=== PATIENT | male | born 1990 | race Hispanic/Latino ===

== ENCOUNTER 2018-11-19 08:34 | Emergency (ER) | payer SELFPAY ==
[2018-11-19 09:26] LABS: Absolute Lymphocytes (CBC) 1.9 K/uL (0.7-4.9); Absolute Monocytes 0.6 K/uL (0.1-1.3); Absolute Neutrophil 6.1 K/uL (1.8-8.0); Basophils % 0.4 % (0-1.3); Eosinophils % 1.1 % (0-4.4); Hematocrit 43.5 % (39.6-49.0); Lymphocytes % 21.3 % (15.3-44.8); MPV 10.2 fL (7.6-11.3); Monocytes % 7.3 % (3.3-12.3); RBC Red Blood Cell Count 4.41 M/uL (4.33-5.43)
[2018-11-19 09:37] LABS: ALT/SGPT 41 U/L (12-78); AST/SGOT 27 U/L (15-37); Albumin 3.5 g/dL (3.4-5.0); Alkaline Phosphatase 94 U/L (45-117); BUN Blood Urea Nitrogen 16 mg/dL (7-18); Bicarbonate 29 mmol/L (21-32); Bilirubin Direct 0.2 mg/dL (0-0.2); Bilirubin Total 0.7 mg/dL (0.2-1.0); Glucose Level 89 mg/dL (74-106); Lipase 118 U/L (73-393); Potassium 4.1 mmol/L (3.5-5.1); Protein, Total 7.6 g/dL (6.4-8.2); Sodium Level 141 mmol/L (136-145)
--- NOTE | 2018-11-19 10:13 | RAD REPORT ---
EXAM DESCRIPTION: US - Scrotum Testicles - 11/19/2018 9:53 am CLINICAL HISTORY: Left scrotal pain and swelling COMPARISON: None FINDINGS: Right testicle measures 2.8 x 2.1 x 2.5 centimeters. Echotexture is homogeneous. Normal bl ood flow. Right epididymis normal size and echotexture with normal blood flow Left testicle measures 3 x 2.1 x 3 centimeters. Echotexture is homogeneous. Increased blood flow is p resent to the left testicle and left epididymis. Left epididymis is enlarged. 1 centimeter hypoechoic area is present the left epididymis Small left hydrocele IMPRESSION: Left orchitis/left epididymitis. 1 centimeter hypoechoic area within the left epididymis probably representing a small abscess
--- NOTE | 2018-11-19 11:07 | EDPHYS ---
Physician Documentation [facility] Name: Jorge Luis Leyva Age: 28 yrs Sex: Male : 1990 Arrival Date: 11/19/2018 Time: 08:37 Bed 8 Private MD: None, None ED Physician Marcelino Oneill HPI: 11/19 09:31 This 28 yrs old Male presents to ER via Ambulatory with complaints of ma2 Testicular Problem. 09:31 Onset: The symptoms/episode began/occurred gradually, 2 day(s) ago. Associated signs ma2 and symptoms: Pertinent positives: dysuria and discharge sexually acitve, Pertinent negatives: diarrhea, fever, nausea, vomiting. Severity of symptoms: At their worst the symptoms were moderate, declined pain medicine , in the emergency department the symptoms are unchanged. The patient has not experienced similar symptoms in the past. Historical: - Allergies: 08:47 tomato juice; aa5 - PMHx: 08:47 None; aa5 - PSHx: 08:47 None; aa5 - Immunization history:: Flu vaccine is not up to date. - Social history:: Smoking status: Patient/guardian denies using tobacco, Patient uses street drugs, marijuana, Patient/guardian denies using alcohol, street drugs, The patient lives with family. - Ebola Screening: : No symptoms or risks identified at this time. - Family history:: not pertinent. ROS: 09:31 Constitutional: Negative for fever, chills, and weight loss, Cardiovascular: Negative ma2 for chest pain, palpitations, and edema, Respiratory: Negative for shortness of breath, cough, wheezing, and pleuritic chest pain, Abdomen/GI: Negative for abdominal pain, nausea, diarrhea, and constipation, MS/Extremity: Negative for injury and deformity, Psych: Negative for depression, anxiety, suicide ideation, homicidal ideation, and hallucinations. 09:31 : Positive for urinary symptoms, testicular pain Negative for injury or acute deformity, pelvic pain, penile pain. 09:31 All other systems are negative. ma2 Exam: 09:31 Constitutional: This is a well developed, well nourished patient who is awake, alert, ma2 and in no acute distress. Chest/axilla: Normal chest wall appearance and motion. Nontender with no deformity. No lesions are appreciated. Cardiovascular: Regular rate and rhythm with a normal S1 and S2. No gallops, murmurs, or rubs. Normal PMI, no JVD. No pulse deficits. Respiratory: Lungs have equal breath sounds bilaterally, clear to auscultation and percussion. No rales, rhonchi or wheezes noted. No increased work of breathing, no retractions or nasal flaring. Abdomen/GI: Soft, non-tender, with normal bowel sounds. No distension or tympany. No guarding or rebound. No evidence of tenderness throughout. Back: No spinal tenderness. No costovertebral tenderness. Full range of motion. MS/ Extremity: Pulses equal, no cyanosis. Neurovascular intact. Full, normal range of motion. Neuro: Awake and alert, GCS 15, oriented to person, place, time, and situation. Cranial nerves II-XII grossly intact. Motor strength 5/5 in all extremities. Sensory grossly intact. Cerebellar exam normal. Normal gait. 09:31 : CVA tenderness, is absent, Male external genitalia: Patient is not circumisioned. erythema, is absent, laceration, swelling: scrotal, testicle, that is moderate, tenderness, is palpated in the right inguinal area, that is mild, ulceration, is not present. Vital Signs: 08:47 Weight 102.06 kg (R); Height 5 ft. 3 in. (160.02 cm) (R); Pain 8/10; aa5 08:49 BP 133 / 81; Pulse 87; Resp 18; Pulse Ox 98% on R/A; hj 08:52 Temp 98.4(O); pc1 09:52 BP 114 / 83; Pulse 60; Resp 18; Pulse Ox 100% on R/A; hj 08:47 Body Mass Index 39.86 (102.06 kg, 160.02 cm) aa5 MDM: 08:41 Patient medically screened. [facility] 09:31 Differential diagnosis: UTI, prostatitis, urethritis, orchitis vs torsion. [facility] 11:05 Data reviewed: vital signs, nurses notes. Counseling: I had a detailed discussion with ma2 the patient and/or guardian regarding: the historical points, exam findings, and any diagnostic results supporting the discharge/admit diagnosis, the presence of at least one elevated blood pressure reading (>120/80) during this emergency department visit, the need for outpatient follow up. Response to treatment: the patient's symptoms have markedly improved after treatment. ED course: orchitis on u/s ? small abscess no SIRS will send to urologist in 2 days, treated w abx . 11/19 09:03 Order name: Basic Metabolic Panel; Complete Time: 11: nm2 11/19 09:03 Order name: CBC with Diff; Complete Time: 11: nm2 11/19 09:03 Order name: Creatinine for Radiology; Complete Time: : nm2 11/19 09:03 Order name: Hepatic Function; Complete Time: 11: nm2 11/19 09:03 Order name: Lipase; Complete Time: 11: nm2 11/19 11:17 Order name: Urine Dipstick--Ancillary (enter results) bd 11/19 09:03 Order name: IV Saline Lock; Complete Time: 09:13 nm2 11/19 09:03 Order name: Labs collected and sent; Complete Time: 09:13 nm2 11/19 09:03 Order name: Scrotum Testicles US; Complete Time: : nm2 11/19 11:17 Order name: Urine Dipstick-Ancillary EDMS Administered Medications: 11:05 Drug: AZITHromycin 1 grams Route: PO; 11:31 Follow up: Response: No adverse reaction 11:09 Not Given (MD change order): Rocephin (cefTRIAXone) 125 mg IM once hj 11:10 Drug: Rocephin (cefTRIAXone) 250 mg Route: IM; Site: right deltoid; 11:31 Follow up: Response: No adverse reaction Disposition: 11/19/18 11:06 Discharged to Home. Impression: Orchitis and epididymitis. - Condition is Stable. - Discharge Instructions: Orchitis. - Prescriptions for Cipro 500 mg Oral Tablet - take 1 tablet by ORAL route every 12 hours for 14 days; 28 tablet. - Medication Reconciliation Form, Thank You Letter, Antibiotic Education, Prescription Opioid Use form. - Follow up: Ismael Castro MD; When: Tomorrow; Reason: Continuance of care. Signatures: Dispatcher [employer] EDMS Mary Basilio RN RN aa5 Tucker Gurrola RN RN hj Marcelino Oneill MD MD ma2 Corrections: (The following items were deleted from the chart) 11:43 11:06 11/19/2018 11:06 Discharged to Home. Impression: Orchitis and epididymitis. hj Condition is Stable. Forms are Medication Reconciliation Form, Thank You Letter, Antibiotic Education, Prescription Opioid Use. Follow up: Ismael Castro; When: Tomorrow; Reason: Continuance of care. ma2
--- NOTE | 2018-11-19 11:07 | ER ---
Nurse's Notes [facility] Name: Jorge Luis Leyva Age: 28 yrs Sex: Male : 1990 Arrival Date: 11/19/2018 Time: 08:37 Bed 8 Private MD: None, None Diagnosis: Orchitis and epididymitis Presentation: 11/19 08:43 Presenting complaint: Patient states: left testicular pain that began on Monday. Pt aa5 also reports swelling to left testicle that began last night. 08:43 Transition of care: patient was not received from another setting of care. Onset of aa5 symptoms was November 2018. Risk Assessment: Do you want to hurt yourself or someone else? Patient reports no desire to harm self or others. Initial Sepsis Screen: Does the patient meet any 2 criteria? No. Patient's initial sepsis screen is negative. Does the patient have a suspected source of infection? No. Patient's initial sepsis screen is negative. Care prior to arrival: None. 08:43 Method Of Arrival: Ambulatory aa5 08:43 Acuity: RYLAND 2 aa5 Triage Assessment: 08:48 General: Appears in no apparent distress. uncomfortable, Behavior is calm, cooperative, hj appropriate for age. Pain: Complains of pain in left testicle and right testicle. Historical: - Allergies: 08:47 tomato juice; aa5 - PMHx: 08:47 None; aa5 - PSHx: 08:47 None; aa5 - Immunization history:: Flu vaccine is not up to date. - Social history:: Smoking status: Patient/guardian denies using tobacco, Patient uses street drugs, marijuana, Patient/guardian denies using alcohol, street drugs, The patient lives with family. - Ebola Screening: : No symptoms or risks identified at this time. - Family history:: not pertinent. Screenin:48 Abuse screen: Denies threats or abuse. Denies injuries from another. Nutritional hj screening: No deficits noted. Tuberculosis screening: No symptoms or risk factors identified. Fall Risk None identified. Assessment: 08:51 General: Appears in no apparent distress. uncomfortable, Behavior is calm, cooperative, hj appropriate for age. Pain: Complains of pain in right testicle and left testicle and groin. Neuro: Level of Consciousness is awake, alert, obeys commands, Oriented to person, place, time, situation, Appropriate for age. Cardiovascular: Capillary refill < 3 seconds Patient's skin is warm and dry. Respiratory: Airway is patent Respiratory effort is even, unlabored, Respiratory pattern is regular, symmetrical. GI: No signs and/or symptoms were reported involving the gastrointestinal system. : Reports discharge, from penis that is. EENT: No signs and/or symptoms were reported regarding the EENT system. Derm: No signs and/or symptoms reported regarding the dermatologic system. Musculoskeletal: No signs and/or symptoms reported regarding the musculoskeletal system. 09:50 Reassessment: Patient and/or family updated on plan of care and expected duration. Pain hj level reassessed. Patient is alert, oriented x 3, equal unlabored respirations, skin warm/dry/pink. awaiting US of testicles;. Vital Signs: 08:47 Weight 102.06 kg (R); Height 5 ft. 3 in. (160.02 cm) (R); Pain 8/10; aa5 08:49 BP 133 / 81; Pulse 87; Resp 18; Pulse Ox 98% on R/A; hj 08:52 Temp 98.4(O); pc1 09:52 BP 114 / 83; Pulse 60; Resp 18; Pulse Ox 100% on R/A; hj 08:47 Body Mass Index 39.86 (102.06 kg, 160.02 cm) aa5 ED Course: 08:37 Patient arrived in ED. mr 08:37 None, None is Private Physician. mr 08:41 Tucker Gurrola, DILIP is Primary Nurse. hj 08:41 Marcelino Oneill MD is Attending Physician. ma2 08:42 Arm band placed on Patient placed in an exam room, on a stretcher. aa5 08:46 Triage completed. aa5 08:49 Patient has correct armband on for positive identification. Placed in gown. Bed in low hj position. Call light in reach. Side rails up X 1. 09:10 Initial lab(s) drawn, by me, sent to lab. Inserted saline lock: 20 gauge in right hj antecubital area, using aseptic technique. Blood collected. 09:13 Basic Metabolic Panel Sent. hj 09:13 CBC with Diff Sent. hj 09:13 Creatinine for Radiology Sent. hj 09:13 Hepatic Function Sent. hj 09:13 Lipase Sent. hj 09:53 Scrotum Testicles US In Process Unspecified. EDMN 11:06 Ismael Castro MD is Referral Physician. [facility] 11:32 No provider procedures requiring assistance completed. IV discontinued, intact, hj bleeding controlled, No redness/swelling at site. Pressure dressing applied. Administered Medications: 11:05 Drug: AZITHromycin 1 grams Route: PO; hj 11:31 Follow up: Response: No adverse reaction hj 11:09 Not Given (MD change order): Rocephin (cefTRIAXone) 125 mg IM once hj 11:10 Drug: Rocephin (cefTRIAXone) 250 mg Route: IM; Site: right deltoid; hj 11:31 Follow up: Response: No adverse reaction Outcome: 11:06 Discharge ordered by . ma2 11:32 Attestation : i agree with the assessment and notes of SN Ana. 11:32 Discharged to home ambulatory. 11:32 Condition: stable 11:32 Discharge instructions given to patient, Instructed on discharge instructions, follow up and referral plans. medication usage, Demonstrated understanding of instructions, follow-up care, medications, Prescriptions given X 1. 11:43 Patient left the ED. Signatures: Dispatcher [employer] EDMN Jared Jennifer PrafulMary, RN RN aa5 Tucker Gurrola, RN RN Marcelino Oneill MD MD ma2 Brian Lee pc1
[2018-11-19] MEDS ORDERED: AZITHROMYCIN 250 MG TAB ONE ×2 (11:22→11:24)
[2018-11-19] MEDS ORDERED: CEFTRIAXONE 250 MG/VIAL ONE (11:23)
[2018-11-19] MEDS ORDERED: LIDOCAINE 1% MPF 2 ML AMPULE ONE (11:23)
[2018-11-19 12:02] LABS: Urine Blood TRACE (NEG); Urine Glucose NEGATIVE (NEG); Urine Protein TRACE (NEG); Urine pH 6.5 (5.0-7.0)
== END 2018-11-19 11:43 | disposition home or self-care (01) ==
LOC: ER 08:34
DX: N45.2 Orchitis (principal); N45.1 Epididymitis
CPT/HCPCS: 36415; 76870; 80048; 80076; 81003; 83690; 85025; 96372; 99284; J0696; J2001

== ENCOUNTER 2019-03-16 10:44 | Emergency (ER) | payer SELFPAY ==
[2019-03-16 11:35] LABS: Absolute Lymphocytes (CBC) 1.6 K/uL (0.7-4.9); Basophils % 0.3 % (0-1.3); Eosinophils % 0.5 % (0-4.4); Hematocrit 44.5 % (39.6-49.0); Lymphocytes % 15.7 % (15.3-44.8); MPV 10.3 fL (7.6-11.3); Monocytes % 6.9 % (3.3-12.3); RBC Red Blood Cell Count 4.36 M/uL (4.33-5.43)
[2019-03-16] MEDS ORDERED: LIDOCAINE 1% 20 ML MDV ONE (11:40)
[2019-03-16 11:48] LABS: BUN Blood Urea Nitrogen 12 mg/dL (7-18); Bicarbonate 29 mmol/L (21-32); Glucose Level 110 mg/dL (74-106); Potassium 3.5 mmol/L (3.5-5.1); Sodium Level 139 mmol/L (136-145)
--- NOTE | 2019-03-16 12:23 | ER ---
Nurse's Notes [facility] Name: Jorge Luis Leyva Age: 28 yrs Sex: Male : 1990 Arrival Date: 03/16/2019 Time: 10:46 Bed 8 Private MD: Diagnosis: Cutaneous abscess of abdominal wall Presentation: 03/16 10:49 Presenting complaint: Patient states: Monday night he thought he had a pimple on his aj1 pants line, but now its all red and swollen, with pus draining out of it. Denies fever. Transition of care: patient was not received from another setting of care. Onset of symptoms was February 2019. Risk Assessment: Do you want to hurt yourself or someone else? Patient reports no desire to harm self or others. Initial Sepsis Screen: Does the patient meet any 2 criteria? HR > 90 bpm. No. Patient's initial sepsis screen is negative. Does the patient have a suspected source of infection? Yes: Skin breakdown/wound. Care prior to arrival: None. 10:49 Method Of Arrival: Ambulatory aj 10:49 Acuity: RYLAND 4 aj1 Triage Assessment: 10:51 General: Appears in no apparent distress. comfortable, Behavior is calm, cooperative, aj1 appropriate for age. Pain: Complains of pain in right lower quadrant. Neuro: Level of Consciousness is awake, alert, obeys commands. Cardiovascular: Patient's skin is warm and dry. Respiratory: Airway is patent Respiratory effort is even, unlabored, Respiratory pattern is regular, symmetrical. Historical: - Allergies: 10:51 tomato juice; aj1 - Home Meds: 10:51 None [Active]; aj1 - PMHx: 10:51 None; aj1 - PSHx: 10:51 None; aj1 - Immunization history:: Flu vaccine is not up to date. Adult Immunizations. - Social history:: Smoking status: Patient/guardian denies using tobacco. - Ebola Screening: : Patient denies travel to an Ebola-affected area in the 21 days before illness onset. Assessment: 11:10 General: Appears in no apparent distress. well groomed, well developed, well nourished, sg Behavior is calm, cooperative, appropriate for age. Pain: Complains of pain in right lower quadrant Quality of pain is described as aching. Neuro: Level of Consciousness is awake, alert, obeys commands, Oriented to person, place, time, situation, Manager Appointment are equal bilaterally Moves all extremities. Speech is normal. Cardiovascular: Capillary refill is brisk in bilateral fingers Patient's skin is warm and dry. Chest pain is denied. Respiratory: Airway is patent Respiratory effort is even, unlabored, Respiratory pattern is regular, symmetrical. GI: Abdomen is round non-distended, Reports tolerance of fluids, tolerance of food. : No signs and/or symptoms were reported regarding the genitourinary system. EENT: No signs and/or symptoms were reported regarding the EENT system. Derm: Abscess located on right inguinal area. Musculoskeletal: No signs and/or symptoms reported regarding the musculoskeletal system. Vital Signs: 10:51 BP 127 / 92; Pulse 108; Resp 20; Temp 97.5; Pulse Ox 95% on R/A; Weight 99.79 kg (R); aj1 Height 5 ft. 4 in. (162.56 cm) (R); Pain 7/10; 12:20 BP 122 / 80; Pulse 89; Resp 18; Pulse Ox 96% on R/A; Pain 3/10; sg 10:51 Body Mass Index 37.76 (99.79 kg, 162.56 cm) aj1 ED Course: 10:46 Patient arrived in ED. as 10:47 Stephan Mueller PA is PHCP. [facility] 10:47 Ron Chavez MD is Attending Physician. [facility] 10:50 Triage completed. aj1 10:51 Arm band placed on Patient placed in an exam room. aj1 11:06 Jules Wade, RN is Primary Nurse. sg 11:10 Patient has correct armband on for positive identification. Bed in low position. Call sg light in reach. Pulse ox on. NIBP on. Head of bed elevated. 11:10 Initial lab(s) drawn, by me, sent to lab. Inserted saline lock: 20 gauge in right sg antecubital area, using aseptic technique. Blood collected. 12:22 Tucker Cummings MD is Referral Physician. [facility] 12:22 Dressings: 4X4s X 2; suprapubic area. tr5 12:30 No provider procedures requiring assistance completed. IV discontinued, intact, sg bleeding controlled, No redness/swelling at site. Pressure dressing applied. Administered Medications: 11:32 Drug: Lidocaine (1 %) 20 ml {Note: medication to be administered by Isael ARMANDO} sg Volume: 20 ml; Route: Infiltration; Outcome: 12:23 Discharge ordered by . chelita 12:30 Discharged to home ambulatory, with friend. sg 12:30 Condition: good 12:30 Discharge instructions given to patient, Instructed on discharge instructions, follow up and referral plans. medication usage, safety practices, wound care, Demonstrated understanding of instructions, follow-up care, medications, wound care, Prescriptions given X 2. 12:34 Patient left the ED. sg Signatures: Teresa Lewis, RN RN aj1 Jules Wade RN RN Stephan Felipe PA PA jmm Martinez, Amelia as Rodriguez, Tommie, RN RN tr5
--- NOTE | 2019-03-16 12:23 | EDPHYS ---
Physician Documentation [facility] Name: Jorge Luis Leyva Age: 28 yrs Sex: Male : 1990 Arrival Date: 03/16/2019 Time: 10:46 Bed 8 Private MD: ED Physician Ron Chavez HPI: 03/16 11:05 This 28 yrs old Male presents to ER via Ambulatory with complaints of Abscess. jmm 11:05 the patient presents with a swollen area of the abdomen. Associated signs and symptoms: jmm Pertinent negatives: drainage, erythema. Modifying factors: the symptoms are alleviated by nothing, the symptoms are aggravated by movement, pressure, sitting, touching. The patient has not experienced similar symptoms in the past. This is a 28 year old male with no chronic medical conditions that presents to the ED with complaints of of swelling to the lower abdomen. Patient states symptoms began as an ingrown hair. . Historical: - Allergies: 10:51 tomato juice; aj1 - Home Meds: 10:51 None [Active]; aj1 - PMHx: 10:51 None; aj1 - PSHx: 10:51 None; aj1 - Immunization history:: Flu vaccine is not up to date. Adult Immunizations. - Social history:: Smoking status: Patient/guardian denies using tobacco. - Ebola Screening: : Patient denies travel to an Ebola-affected area in the 21 days before illness onset. ROS: 11:05 Constitutional: Negative for fever, chills, and weight loss, Eyes: Negative for injury, jmm pain, redness, and discharge, ENT: Negative for injury, pain, and discharge, Cardiovascular: Negative for chest pain, palpitations, and edema, Respiratory: Negative for shortness of breath, cough, wheezing, and pleuritic chest pain. 11:05 Skin: Positive for erythema. 11:05 All other systems are negative. Exam: 11:05 Constitutional: This is a well developed, well nourished patient who is awake, alert, jmm and in no acute distress. Head/Face: atraumatic. Eyes: EOMI, no conjunctival erythema appreciated ENT: Moist Mucus Membranes Neck: Trachea midline, Supple Chest/axilla: Normal chest wall appearance and motion. Cardiovascular: Regular rate and rhythm. No edema appreciated Respiratory: Normal respirations, no respiratory distress appreciated 11:05 MS/ Extremity: Moves all extremities, no obvious deformities appreciated, no edema noted to the lower extremities Neuro: Awake and alert, normal gait Psych: Behavior is normal, Mood is normal, Patient is cooperative and pleasant 11:05 Abdomen/GI: lower abdominal erythema noted with an open wound. Vital Signs: 10:51 BP 127 / 92; Pulse 108; Resp 20; Temp 97.5; Pulse Ox 95% on R/A; Weight 99.79 kg (R); aj1 Height 5 ft. 4 in. (162.56 cm) (R); Pain 7/10; 12:20 BP 122 / 80; Pulse 89; Resp 18; Pulse Ox 96% on R/A; Pain 3/10; sg 10:51 Body Mass Index 37.76 (99.79 kg, 162.56 cm) [facility] Procedures: 12:21 I \T\ D: Incision and drainage was performed for an abscess of the abdomen Prepped with [facility] Betadine, Anesthetized with 5 ml's 1% Lidocaine. Drained moderate amount purulent fluid. Packed with sterile gauze, Dressing: sterile 4x4 gauze, the patient tolerated the procedure well. MDM: 11:05 Patient medically screened. [facility] 12:21 Data reviewed: vital signs, nurses notes. Counseling: I had a detailed discussion with [facility] the patient and/or guardian regarding: the historical points, exam findings, and any diagnostic results supporting the discharge/admit diagnosis, lab results, the need for outpatient follow up, to return to the emergency department if symptoms worsen or persist or if there are any questions or concerns that arise at home. ED course: Patient is alert and non toxic in appearance in the ED. Labs unremarkable. Patient is advised to follow up with gen surgery for wound care and otherwise given strict return precautions. Patient understood and agrees with the plan of care. . 03/16 11:05 Order name: CBC with Diff; Complete Time: 11:58 [facility] 03/16 11:05 Order name: BMP; Complete Time: 11:58 [facility] 03/16 11:05 Order name: Saline Lock; Complete Time: 11:21 [facility] 03/16 11:09 Order name: Incision \T\ Drainage Setup; Complete Time: 12:22 [facility] Administered Medications: 11:32 Drug: Lidocaine (1 %) 20 ml {Note: medication to be administered by Booker. PA.} sg Volume: 20 ml; Route: Infiltration; Disposition: 16:51 Co-signature as Attending Physician, Ron Chavez MD. rn Disposition: 03/16/19 12:23 Discharged to Home. Impression: Cutaneous abscess of abdominal wall. - Condition is Stable. - Discharge Instructions: Skin Abscess, Incision and Drainage, Incision and Drainage, Care After. - Prescriptions for Ultracet 37.5- 325 mg Oral Tablet - take 1 tablet by ORAL route every 6 hours - for up to 5 days; do not exceed 8 tablets per day.; 12 tablet. Bactrim DS 800- 160 mg Oral Tablet - take 1 tablet by ORAL route every 12 hours for 10 days; 20 tablet. - Medication Reconciliation Form, Thank You Letter, Antibiotic Education, Prescription Opioid Use form. - Follow up: Tucker Cummings MD; When: 2 - 3 days; Reason: Recheck today's complaints, Continuance of care, Re-evaluation by your physician. Signatures: Dispatcher [employer] EDMS Teresa Lewis RN RN aj1 Jules Wade RN RN sg Mickail, Joel, PA PA jmm Nieto, Roman, MD MD learning and development associate: (The following items were deleted from the chart) 12:34 12:23 03/16/2019 12:23 Discharged to Home. Impression: Cutaneous abscess of abdominal sg wall. Condition is Stable. Forms are Medication Reconciliation Form, Thank You Letter, Antibiotic Education, Prescription Opioid Use. Follow up: Tucker Cummings; When: 2 - 3 days; Reason: Recheck today's complaints, Continuance of care, Re-evaluation by your physician. chelita
== END 2019-03-16 12:34 | disposition home or self-care (01) ==
LOC: ER 10:44
PROC: 0J980ZZ Drainage of Abdomen Subcutaneous Tissue and Fascia, Open Approach (ICD-10-PCS; principal; 2019-03-16)
DX: L02.211 Cutaneous abscess of abdominal wall (principal)
CPT/HCPCS: 36415; 80048; 85025; 99284